=== PATIENT | male | born 2000 | race Caucasian/White ===

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

== ENCOUNTER 2019-03-23 21:47 | Emergency (ER) | payer SELFPAY ==
[~2019-03-23] VITALS: Ht 175.3 cm; Wt 61.7 kg
[~2019-03-23 21:47] MED LIST changes: +HYDR25TA PO
[2019-03-23] MEDS ORDERED: IV RINGERS SOLUTION,LACTATED 1,000 ML IV SCH (21:50)
--- NOTE | 2019-03-23 21:50 | PHYS DOC ---
Past History Past Medical History: Anxiety, Asthma, Depression Additional Past Medical Histor: history of pyloric stenosis Past Surgical History: Other Additional Past Surgical Histo: pyloric stenosis corrective surgery Smoking: Non-smoker Alcohol Use: None Drug Use: None Adult General Chief Complaint Chief Complaint: ".. I accidently took double my dosage of Seroquel.. instead of 200 .. I took 400 accidently... that was about 3 hrs. or more ago.... I have Bipolar.. and some Schizoaffective disorder... " HPI HPI Patient is a 19 year old male who presents with above hx and complaints of over dosage by accidentally taking his night dose twice. Patient took 400 mg of Seroquel. Patient has history of bipolar disorder with some schizoaffective characteristics. No recent vision history of suicidal ideation. No homicidal ideation. Patient has had good stabilization of his bipolar disorder on current meds. Patient normally follows at [facility]. Patient states he was not trying to harm himself but does actively took an extra dose tonight. Review of Systems Review of Systems Constitutional: Denies fever or chills [] Eyes: Denies change in visual acuity, redness, or eye pain [] HENT: Denies nasal congestion or sore throat [] Respiratory: Denies cough or shortness of breath [] Cardiovascular: No additional information not addressed in HPI [] GI: Denies abdominal pain, nausea, vomiting, bloody stools or diarrhea [] : Denies dysuria or hematuria [] Musculoskeletal: Denies back pain or joint pain [] Integument: Denies rash or skin lesions [] Neurologic: Denies headache, focal weakness or sensory changes []. The patient complains that he feels overly sedated Endocrine: Denies polyuria or polydipsia [] All other systems were reviewed and found to be within normal limits, except as documented in this note. Family History Family History Noncontributory Current Medications Current Medications See nursing for home meds Allergies Allergies Allergies Coded Allergies Type Severity Reaction Last Updated Verified Sulfa (Sulfonamide Antibiotics) Allergy Unknown 03/22/17 Yes Physical Exam Physical Exam Constitutional: , no acute distress, non-toxic appearance. [] HENT: Normocephalic, atraumatic, bilateral external ears normal, oropharynx moist, no oral exudates, nose normal. [][place] Eyes: PERRLA, EOMI, conjunctiva normal, no discharge. [] Neck: Normal range of motion, no tenderness, supple, no stridor. [] Cardiovascular: Tachycardia Heart rate regular rhythm, no murmur [] Lungs & Thorax: Bilateral breath sounds with apex scattered wheezes on auscultation [] Abdomen: Bowel sounds normal, soft, no tenderness, no masses, no pulsatile masses. Old surgical scar on abdomen[] Skin: Warm, dry, no erythema, no rash. [] Back: No tenderness, no CVA tenderness. [] Extremities: No tenderness, no cyanosis, no clubbing, ROM intact, no edema. [] Neurologic: Alert and oriented X 3, normal motor function, normal sensory function, no focal deficits noted. [] Psychologic: Affect anxious, judgement normal, mood normal. [] EKG EKG Interpretation EKG shows sinus tachycardia heart beats per minute. There is non specific morphology changes. There is a mild right bundle-branch block. But no findings acute STEMI of contralateral changes. QTc interval is 442 ms QT interval 340 ms Radiology/Procedures Radiology/Procedures [][place] [address] IMAGING REPORT Signed PATIENT: LAMONTE HARO LACCOUNT: [id number] : 2000 LOCATION: ER AGE: 19 SEX: M EXAM STATUS: REG ER ORD. PHYSICIAN: ISABEL PAINTING MD REASON: Overdose on pills, nausea, vomiting, anxiety PROCEDURE: ACUTE ABDOMEN SERIES Examination: Acute abdomen series HISTORY: History of overdose, nausea, vomiting COMPARISON: 04/04/2013 FINDINGS: The cardiomediastinal silhouette grossly appears unremarkable. The lungs are clear. The bowel gas pattern appears unremarkable. IMPRESSION: 1. No acute cardiopulmonary findings. 2. Unremarkable gas pattern. Electronically signed by: Jcarlos Hoffman MD (03/23/2019 10:54 PM) [facility] DICTATED AND SIGNED BY: JCARLOS HOFFMAN MD DATE: 03/23/19 2254 CC: ISABEL PAINTING MD; PCP,NO ~ Course & Med Decision Making Course & Med Decision Making Pertinent Labs and Imaging studies reviewed. (See chart for details) Patient to separate out his meds so he does not accidentally overdoses in the future. Patient follow-up primary care. Patient return if any concerns. Impression 1. Accidental overdose of Seroquel 2. History of bipolar disorder- 3. Tobacco and Marijuana use 4. Mild Hypokalemia 3.1 [] Dragon Disclaimer Dragon Disclaimer This electronic medical record was generated, in whole or in part, using a voice recognition dictation system. Departure Departure: Disposition: 01 HOME/RESIDENCE PRIOR TO ADM Condition: STABLE Referrals: PCP,NO (PCP) Lewis Disclaimer This chart was dictated in whole or in part using Voice Recognition software in a busy, high-work load, and often noisy Emergency Department environment. It may contain unintended and wholly unrecognized errors or omissions. ISABEL PAINTING MD Mar 23, 2019 21:50
[2019-03-23] MEDS ORDERED: SODIUM BICARBONATE 50 MEQ/50 ML VIAL. ONE (22:07)
[2019-03-23] MEDS ORDERED: ONDANSETRON PF 4 MG/2 ML VIAL. ONE (22:07)
[2019-03-23] MEDS ORDERED: MAGNESIUM HYDROXIDE 2,400 MG/30 ML ORAL.SUSP. ONE ×2 (22:07→22:08)
[2019-03-23] MEDS ORDERED: MVI, ADULT NO.4 WITH VIT K 10 ML, FOLIC ACID INJ 1 MG, THIAMINE INJ 100 MG in IV RINGER... IV ONE ×4 (22:30)
[2019-03-23] MEDS ORDERED: SODIUM BICARBONATE 50 MEQ/50 ML VIAL. IV ONE (22:30)
[2019-03-23] MEDS ORDERED: ONDANSETRON PF 4 MG/2 ML VIAL. IVP ONE (22:30)
--- NOTE | 2019-03-23 22:58 | RAD ---
Examination: Acute abdomen series HISTORY: History of overdose, nausea, vomiting COMPARISON: 04/04/2013 FINDINGS: The cardiomediastinal silhouette grossly appears unremarkable. The lungs are clear. The bowel gas pattern appears unremarkable. IMPRESSION: 1. No acute cardiopulmonary findings. 2. Unremarkable gas pattern. Electronically signed by: Jcarlos Hoffman MD (03/23/2019 10:54 PM) [facility]
[2019-03-23 23:09] LABS: CALCIUM 8.8 mg/dL (8.5-10.1); CREATININE 0.7 mg/dL (0.7-1.3); GFR 143.8; POTASSIUM 3.1 mmol/L (3.5-5.1)
[2019-03-23 23:11] LABS: BASO % 1 % (0-3); EOS % 0 % (0-3); HEMATOCRIT 44.5 % (39.0-53.0); HEMOGLOBIN 15.5 g/dL (13.0-17.5); LYMPH # 1.6 x10^3/uL (1.0-4.8); LYMPH % 24 % (24-48); MEAN CORPUSCULAR HEMOGLOBIN 31 pg (25-35); MEAN CORPUSCULAR HGB CONC 35 g/dL (31-37); MEAN CORPUSCULAR VOLUME 89 fL (79-100); MONO # 0.7 x10^3/uL (0.0-1.1); MONO % 10 % (0-9); NEUT # 4.2 x10^3uL (1.8-7.7); NEUT % 64 % (31-73); PLATELET COUNT 197 x10^3/uL (140-400); RED BLOOD COUNT 4.99 x10^6/uL (4.30-5.70); RED CELL DISTRIBUTION WIDTH 12.9 % (11.5-14.5); WHITE BLOOD COUNT 6.5 x10^3/uL (4.0-11.0)
[2019-03-23 23:16] LABS: BILIRUBIN,URINE NEG (NEG); CLARITY,URINE CLEAR; COLOR,URINE YELLOW; GLUCOSE,URINE NEG (NEG); NITRITE,URINE NEG (NEG); UROBILINOGEN,URINE 0.2 mg/dL (0.2 mg/dL)
[2019-03-23 23:17] LABS: BACTERIA,URINE FEW /HPF (0-FEW); RBC,URINE OCC /HPF (0-2); SPERM,URINE PRESENT /HPF; SQUAMOUS EPITHELIAL CELL,UR OCC /LPF; WBC,URINE 0 /HPF (0-4)
[2019-03-23 23:18] LABS: BARBITURATES NEG (NEG); BENZODIAZEPINES NEG (NEG); CANNABINOIDS POS (NEG); COCAINE NEG (NEG); METHADONE NEG (NEG); OPIATES NEG (NEG); PHENCYCLIDINE NEG (NEG)
[2019-03-23 23:23] LABS: AMPHETAMINE/METHAMPHETAMINE NEG (NEG)
[2019-03-23 23:24] LABS: ALBUMIN 4.1 g/dL (3.4-5.0); DIRECT BILIRUBIN 0.1 mg/dL (0.0-0.2); MAGNESIUM 2.1 mg/dL (1.8-2.4); TOTAL BILIRUBIN 0.3 mg/dL (0.2-1.0); TOTAL PROTEIN 7.3 g/dL (6.4-8.2)
[2019-03-23 23:35] LABS: ETHANOL < 10 mg/dL (0-10); SALIC 4.7 mg/dL (2.8-20.0)
[2019-03-23 23:36] LABS: ACETAMIN < 2.0 mcg/mL (10-30)
[2019-03-23] MEDS ORDERED: POTASSIUM CHLORIDE 20 MEQ TABLET.ER. PO ONE (23:45)
[2019-03-24 01:10] VITALS: BP 113/71
--- NOTE | 2019-03-24 04:42 | EKG ---
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
== END 2019-03-24 01:15 | disposition home or self-care (01) ==
LOC: ER 21:47
DX: T43.591A Poisoning by other antipsychotics and neuroleptics, accidental (unintentional), initial encounter (principal); F25.9 Schizoaffective disorder, unspecified; F31.9 Bipolar disorder, unspecified; E87.6 Hypokalemia; F41.9 Anxiety disorder, unspecified; J45.909 Unspecified asthma, uncomplicated; Z88.2 Allergy status to sulfonamides; Y92.89 Other specified places as the place of occurrence of the external cause
CPT/HCPCS: 36415; 74022; 80048; 80076; 80307; 80329; 81001; 82550; 83690; 83735; 83880; 84443; 84484; 85025; 85610; 85730; 93005; 96365; 96375; 99285; G0480; J2405; J7120; 82003

== ENCOUNTER 2020-02-13 16:43 | Emergency (ER) | payer SELFPAY ==
[~2020-02-13] VITALS: Ht 175.3 cm; Wt 66.0 kg
[2020-02-13] MEDS ORDERED: ALBU2.5V8 IH (17:51)
--- NOTE | 2020-02-13 17:51 | PHYS DOC ---
Past History Past Medical History: Anxiety, Asthma, Bipolar, Depression Additional Past Medical Histor: history of pyloric stenosis (CELESTE SMART APRN) Past Surgical History: Other Additional Past Surgical Histo: pyloric stenosis corrective surgery (CELESTE SMART APRN) Smoking: Non-smoker Alcohol Use: None Drug Use: None (CELESTE SMART APRN) General Adult EDM: Chief Complaint: SHORTNESS OF BREATH HPI: HPI: Patient is a 19-year-old male who presents to the emergency department with complaints of shortness of breath. Patient states that he recently from his fiance 2 weeks ago and this afternoon she sent him a text message and he thinks that that sentiment to an anxiety attack. Patient states that he sta rted to feel short of breath like he could not breathe. At this time he denies any shortness of breath. He denies any recent fever, cough, sore throat, loss of taste/smell, nausea, vomiting, diarrhea, body aches, fatigue, abdominal pain, or headache. He denies any complaints at this time. Patient denies any suicidal or homicidal ideations or attempts. Patient states he does have a history of asthma and would like a prescription for inhaler. (CELESTE SMART APRN) Review of Systems: Review of Systems: Complete ROS is negative unless otherwise noted in HPI. (CELESTE SMART APRN) Allergies: Allergies: Allergies Coded Allergies Type Severity Reaction Last Updated Verified Sulfa (Sulfonamide Antibiotics) Allergy Unknown 03/22/17 Yes (CELESTE SMART APRN) Physical Exam: PE: See Above Constitutional: Well developed, well nourished, no acute distress, non-toxic appearance. [] HENT: Normocephalic, atraumatic, bilateral external ears normal, nose normal. [] Eyes: PERRLA, EOMI, conjunctiva normal, no discharge. [] Neck: Normal range of motion, no stridor. [] Cardiovascular:Heart rate regular rhythm Lungs & Thorax: Respirations even and unlabored, no retractions, no respiratory distress Skin: Warm, dry, no erythema, no rash. [] Extremities: No cyanosis, ROM intact, no edema. [] Neurologic: Alert and oriented X 3, no focal deficits noted. [] Psychologic: Affect normal, judgement normal, mood normal. [] (CELESTE SMART APRN) EKG: EKG: [] (CELESTE SMART APRN) Radiology/Procedures: Radiology/Procedures: [] (CELESTE SMART APRN) Heart Score: Risk Factors: Risk Factors: DM, Current or recent (<one month) smoker, HTN, HLP, family history of CAD, obesity. Risk Scores: Score 0 - 3: 2.5% MACE over next 6 weeks - Discharge Home Score 4 - 6: 20.3% MACE over next 6 weeks - Admit for Clinical Observation Score 7 - 10: 72.7% MACE over next 6 weeks - Early Invasive Strategies (CELESTE SMART APRN) Course & Med Decision Making: Course & Med Decision Making Pertinent Labs and Imaging studies reviewed. (See chart for details) [] (CELESTE SMART APRN) Dragon Disclaimer: Dragon Disclaimer: This electronic medical record was generated, in whole or in part, using a voice recognition dictation system. (CELESTE SMART APRN) Departure Departure: Impression: Primary Impression: Anxiety Additional Impression: Medication refill Disposition: 01 DC HOME SELF CARE/HOMELESS Condition: STABLE Referrals: PCP,DEVON (PCP) Patient Instructions: Anxiety and Panic Attacks, [id number], Medication Refill, Emergency Department Additional Instructions: Fill the prescription and use it as directed. Follow-up with your primary care doctor in the next 1 to 2 days. Return to the ER if your symptoms worsen or you develop suicidal thoughts. Thank you for choosing [facility] today, it was my pleasure to take care of you today. Scripts Albuterol Sulfate (PROAIR HFA INHALER) 8.5 Gm Hfa.aer.ad 2 PUFF IH PRN Q4-6HRS PRN for wheezing for 21 Days, #1 INHALER 1 Refill as needed for wheezing or shortness of breath Prov: CELESTE SMART APRN 02/13/20 Attending Signature Attending Signature I have reviewed the PA/ENGINEERING PRODUCTION LIAISON's note and plan of care. I was available for consultation as needed during the patient's visit in the emergency department. I agree with the clinical impression, plan, and disposition. (SILVIA LONG DO) CELESTE SMART APRN Feb 13, 2020 17:51 SILVIA LONG DO Feb 14, 2020 00:07
[2020-02-13 17:56] VITALS: BP 126/70
== END 2020-02-13 17:59 | disposition home or self-care (01) ==
LOC: ER 16:43
DX: F41.9 Anxiety disorder, unspecified (principal); R06.02 Shortness of breath; J45.909 Unspecified asthma, uncomplicated; F32.9 Major depressive disorder, single episode, unspecified; Z98.890 Other specified postprocedural states; Z88.2 Allergy status to sulfonamides
CPT/HCPCS: 99284

== ENCOUNTER 2020-02-16 10:29 | Emergency (ER) | payer SELFPAY ==
[~2020-02-16] VITALS: Ht 175.3 cm; Wt 65.0 kg
[~2020-02-16 10:29] MED LIST changes: +ALBU2.5V8 IH
--- NOTE | 2020-02-16 10:34 | PHYS DOC ---
Past History Past Medical History: Anxiety, Asthma, Bipolar, Depression Additional Past Medical Histor: history of pyloric stenosis Past Surgical History: Other Additional Past Surgical Histo: pyloric stenosis corrective surgery Smoking: Non-smoker Alcohol Use: None Drug Use: None Adult General HPI HPI Patient is a 19-year-old male here for shortness of breath and chest pain. He was seen here 3 days ago for anxiety status post breaking up with long-term partner. He was given a short acting albuterol inhaler for shortness of breath and advised to follow-up in outpatient setting. Nonetheless, patient reports development of worsened shortness of breath and chest discomfort today. He is a pack-a-day smoker, denies alcohol use or illicit drug abuse. No history of congenital cardiac defects, no family history of cardiac disease Review of Systems Review of Systems Fourteen body systems of review of systems have been reviewed. See HPI for pertinent positives and negative responses, other jarvis all other systems are negative, non-pertinent or non-contributory Allergies Allergies Allergies Coded Allergies Type Severity Reaction Last Updated Verified Sulfa (Sulfonamide Antibiotics) Allergy Unknown 03/22/17 Yes Physical Exam Physical Exam Constitutional: Well developed, well nourished, no acute distress, non-toxic appearance. HENT: Normocephalic, atraumatic, bilateral external ears normal, oropharynx moist, no oral exudates, nose normal. Eyes: PERRLA, EOMI, conjunctiva normal, no discharge. Neck: Normal range of motion, no tenderness, supple, no stridor. Cardiovascular: Heart rate regular, sinus rhythm, no murmurs rubs or gallops Lungs & Thorax: Bilateral breath sounds clear to auscultation Abdomen: Bowel sounds normal, soft, no tenderness, no masses, no pulsatile masses. Nonsurgical abdomen, no peritoneal signs Skin: Warm, dry, no erythema, no rash. Back: No tenderness, no CVA tenderness. Extremities: No tenderness, no cyanosis, no clubbing, ROM intact, no edema. Neurologic: Alert and oriented X 3, grossly normal motor & sensory function, no focal deficits noted. Psychologic: Affect normal, judgement normal, anxious mood EKG EKG EKG ordered and interpreted by myself at 1059 hrs. as sinus rhythm at 78 bpm, unremarkable intervals, no axis deviation, no acute ischemic findings, does not meet voltage criteria for LVH, no STEMI Radiology/Procedures Radiology/Procedures CHEST AP ONLY Clinical History: Reason: shob / Spl. Instructions: / History: Technique: AP view of the chest was obtained at 02/16/2020 10:40 AM. Comparison: None. Findings: The cardiomediastinal silhouette is normal. The pulmonary vasculature is normal. There is vague patchy opacity in the. Impression: No evidence of an acute cardiopulmonary process. Electronically signed by: Louis Issa III, MD (02/16/2020 11:29 AM) [facility] Heart Score HEART Score for Chest Pain: HEART Score for Chest Pain Response (Comments) Value History Slighlty/Non-Suspicious 0 ECG Normal 0 Age < 45 0 Risk Factors No Risk Factors 0 Total 0 Risk Factors: Risk Factors: DM, Current or recent (<one month) smoker, HTN, HLP, family history of CAD, obesity. Risk Scores: Risk Factors: DM, Current or recent (<one month) smoker, HTN, HLP, family history of CAD, obesity. Course & Med Decision Making Course & Med Decision Making Pertinent Labs and Imaging studies reviewed. (See chart for details) ABCs unremarkable, hemodynamically stable well-appearing patient. Discussed little indication for further ER work-up. No significant risk factors, no indication for antibiotics at present I advised patient to establish with local primary care provider for continuity of care and to work-up this matter further in outpatient setting Patient was advised and educated on importance of close outpatient follow-up. I advised them to call primary care physician as soon as possible to discuss following up in outpatient setting after ER departure for repeat examination and evaluation. Strict return precautions were discussed at length with good understanding by patient who is able to restate plan and concerning signs or symptoms that should prompt immediate medical attention. All questions and concerns addressed prior to ER departure Dragon Disclaimer Dragon Disclaimer This electronic medical record was generated, in whole or in part, using a voice recognition dictation system. PERC Rule for PE PERC Rule for PE Response (Comments) Value Age > 50: No 0 HR > 100: No 0 Sa02 on room air <95%: No 0 Unilateral leg swelling: No 0 Hemoptysis: No 0 Recent surgery or trauma: No 0 Prior PE or DVT: No 0 Hormone use: No 0 Total 0 Departure Departure: Impression: Primary Impression: Chest pain, unspecified Disposition: 01 DC HOME SELF CARE/HOMELESS Condition: STABLE Referrals: PCP,NO (PCP) Patient Instructions: Chest Pain (Nonspecific) Additional Instructions: As discussed prior to ER departure, please use attached resource list follow-up with primary care provider of your liking As discussed today there were no obvious emergent and/or surgical findings, there is no further indication for ER intervention and/or work-up If any concerning signs or symptoms present prior to outpatient follow-up please do not hesitate to come back for repeat examination Is a pleasure to take care of you and I wish you the best going forward YEN LAGUNA DO Feb 16, 2020 10:34
[2020-02-16 10:35] VITALS: BP 136/72
--- NOTE | 2020-02-16 11:32 | RAD ---
CHEST AP ONLY Clinical History: Reason: shob / Spl. Instructions: / History: Technique: AP view of the chest was obtained at 02/16/2020 10:40 AM. Comparison: None. Findings: The cardiomediastinal silhouette is normal. The pulmonary vasculature is normal. There is vague patchy opacity in the. Impression: No evidence of an acute cardiopulmonary process. Electronically signed by: Louis Issa III, MD (02/16/2020 11:29 AM) [facility]
--- NOTE | 2020-02-18 08:48 | EKG ---
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
== END 2020-02-16 11:49 | disposition home or self-care (01) ==
LOC: ER 10:29
DX: R07.9 Chest pain, unspecified (principal); R06.02 Shortness of breath; F41.9 Anxiety disorder, unspecified; J45.909 Unspecified asthma, uncomplicated; F31.9 Bipolar disorder, unspecified; Z88.2 Allergy status to sulfonamides
CPT/HCPCS: 71045; 93005; 99283

== ENCOUNTER 2020-11-24 22:46 | Emergency (ER) | payer SELFPAY ==
[~2020-11-24] VITALS: Ht 175.3 cm; Wt 65.0 kg
[2020-11-24 23:03] VITALS: BP 130/65
--- NOTE | 2020-11-24 23:28 | PHYS DOC ---
Past History Past Medical History: Asthma, Bipolar Additional Past Medical Histor: history of pyloric stenosis Past Surgical History: Other Additional Past Surgical Histo: PYLORIC STENOSIS Smoking: Non-smoker Alcohol Use: Occasionally Drug Use: None General Adult EDM: Chief Complaint: SORE THROAT HPI: HPI: 20-year-old male presents the emergency room because he was forced to come here by his grandmother. Patient had a sore throat yesterday. He tells me that it got better today and he currently has no pain. He has no other complaints. Review of Systems: Review of Systems: Constitutional: Denies fever or chills Eyes: Denies change in visual acuity HENT: sore throat Respiratory: Denies cough or shortness of breath Cardiovascular: Denies chest pain or edema GI: Denies abdominal pain, nausea, vomiting, bloody stools or diarrhea : Denies dysuria Musculoskeletal: Denies back pain or joint pain Integument: Denies rash Neurologic: Denies headache, focal weakness or sensory changes Endocrine: Denies polyuria or polydipsia Lymphatic: Denies swollen glands Psychiatric: Denies depression or anxiety Allergies: Allergies: Allergies Coded Allergies Type Severity Reaction Last Updated Verified Sulfa (Sulfonamide Antibiotics) Allergy Unknown 03/22/17 Yes Physical Exam: PE: Constitutional: Well developed, well nourished, no acute distress, non-toxic appearance. [] HENT: Normocephalic, atraumatic, bilateral external ears normal, oropharynx moist, no oral exudates, nose normal. [] Eyes: PERRLA, EOMI, conjunctiva normal, no discharge. [] Neck: Normal range of motion, no tenderness, supple, no stridor. [] Cardiovascular:Heart rate regular rhythm, no murmur [] Lungs & Thorax: Bilateral breath sounds clear to auscultation [] Abdomen: Bowel sounds normal, soft, no tenderness, no masses, no pulsatile masses. [] Skin: Warm, dry, no erythema, no rash. [] Back: No tenderness, no CVA tenderness. [] Extremities: No tenderness, no cyanosis, no clubbing, ROM intact, no edema. [] Neurologic: Alert and oriented X 3, normal motor function, normal sensory function, no focal deficits noted. [] Psychologic: Affect normal, judgement normal, mood normal. [] Current Patient Data: Vital Signs: Vital Signs Date Time Temp Pulse Resp B/P (MAP) Pulse Ox O2 Delivery O2 Flow Rate FiO2 11/24/20 23:03 98.7 90 18 130/65 (86) 97 Room Air EKG: EKG: [] Radiology/Procedures: Radiology/Procedures: [] Heart Score: C/O Chest Pain: N/A Risk Factors: Risk Factors: DM, Current or recent (<one month) smoker, HTN, HLP, family history of CAD, obesity. Risk Scores: Score 0 - 3: 2.5% MACE over next 6 weeks - Discharge Home Score 4 - 6: 20.3% MACE over next 6 weeks - Admit for Clinical Observation Score 7 - 10: 72.7% MACE over next 6 weeks - Early Invasive Strategies Course & Med Decision Making: Course & Med Decision Making Pertinent Labs and Imaging studies reviewed. (See chart for details) The patient's rapid strep was negative. He is stable for discharge at this time. [] Dragon Disclaimer: Dragon Disclaimer: This electronic medical record was generated, in whole or in part, using a voice recognition dictation system. Departure Departure: Impression: Primary Impression: Sore throat Disposition: HOME / SELF CARE / HOMELESS Condition: STABLE Referrals: PCP,DEVON (PCP) Patient Instructions: Sore Throat, [id number] JOSE RAMON FLETCHER DO Nov 24, 2020 23:28
== END 2020-11-25 00:31 | disposition home or self-care (01) ==
LOC: ER 22:46
DX: J02.9 Acute pharyngitis, unspecified (principal); J45.909 Unspecified asthma, uncomplicated; F31.9 Bipolar disorder, unspecified; Z88.2 Allergy status to sulfonamides
CPT/HCPCS: 87070; 87880; 99283